=== PATIENT | male | born 1985 | race Caucasian/White ===

== ENCOUNTER 2017-01-29 13:29 | Emergency (ER) | payer MEDICAID ==
[~2017-01-29] VITALS: Ht 193 cm; Wt 76.0 kg
[~2017-01-29 13:29] MED LIST: OXYC5CAP2 PO; QUET100T4 PO
[2017-01-29] MEDS ORDERED: SODIUM CHLORIDE 0.9% 1,000ML IVBOLUS ONE (14:00)
[2017-01-29] MEDS ORDERED: ACETAMINOPHEN 325 MG TABLET PO ONE (14:00)
[2017-01-29] MEDS ORDERED: SODIUM CHLORIDE FLUSH 10ML SYR IVF ONE (14:00)
[2017-01-29] MEDS ORDERED: ACETAMINOPHEN 325 MG TABLET ONE (14:15)
[2017-01-29 14:35] LABS: HEMATOCRIT 45.1 % (39.2-51.8); HEMOGLOBIN 15.3 g/dL (13.7-18.0); WHITE BLOOD COUNT 5.5 x10^3/uL (3.4-10)
[2017-01-29 14:46] LABS: ASPARTATE AMINO TRANSFERASE 22 U/L (15-37); BLOOD UREA NITROGEN 9 mg/dL (7-18)
[2017-01-29] MEDS ORDERED: LEVETIRACETAM 1,000 MG in SODIUM CHLORIDE 0.9% 100 ML IV ONE (16:30)
[2017-01-29 16:39] VITALS: BP 127/78
== END 2017-01-29 17:39 | disposition home or self-care (01) ==
LOC: ED 15:37
DX: R56.9 Unspecified convulsions (principal); I10 Essential (primary) hypertension
CPT/HCPCS: 36415; 70450; 80053; 85025; 96361; 96365; 99285; J1953; J7030